=== PATIENT | female | born 1990 | race Caucasian/White ===

== ENCOUNTER 2019-02-06 20:11 | Inpatient (IN) ==
[2019-02-06] MEDS ORDERED: OXYTOCIN 30 UNITS/500 ML BAG IV PRN ×2 (21:00→22:23)
[2019-02-06 21:22] LABS: Hematocrit (blood only) 36.5 % (37-47); Hemoglobin 12.6 g/dL (12.0-16.0); Mean Corpuscular Volume 88.2 fL (80-100); Mean Platelet Volume 10.9 fL (7.4-10.4); Platelet Count 242 K/uL (130-400); RDW Coefficient of Variation 12.6 % (11.5-14.5); Red Blood Count 4.14 M/uL (4.2-5.4); White Blood Count 10.55 K/uL (4.8-10.8)
[2019-02-06 21:39] LABS: Mean Corpuscular Hgb Conc 34.5 g/dL (32-36)
--- NOTE | 2019-02-06 22:23 | History & Physical Report ---
Date of Service February 06, 2019 Assessment & Plan (1) Spontaneous rupture of amniotic membranes: 28 yo at 36.6 wks, with SROM, in early labor GBS negative VSS Afebrile FHR reassuring Discussed expectant management vs augmentation of labor with Pitocin with decreased risk of intraamniotic infection Desires expectant management/ walk now and agrees with augmentation All questions were answered (2) premature rupture of membranes in third trimester: History of Present Illness Chief Complaint: Leaking fluids Primary Care Provider: NO PCP Patient is a 28 yo at 36.6 wks who has been leaking amniotic fluid since 1945 this evening Clear Ctxs started right after, got closer and regular, now every 2-3 min, pain is 5- 6/10 No VB/ Fever/ chills/ n&V +FM Her has been uncomplicated except 1) arrhythmia, PAC, seen MFM and peds cardiology NST's have been reactive GBS negative Allergies Allergy/AdvReac Type Severity Reaction Status Date / Time No Known Allergies Allergy Verified 02/06/19 21:56 Home Medications Home Medications Medication Instructions Recorded Confirmed Type vit-iron fum-folic ac 1 tab PO DAILY 02/06/19 02/06/19 History [ Vitamin] Patient History Medical History History of abnormal cervical Pap smear [place] teeth removed Surgical History H/O colposcopy with cervical biopsy 2013; pap smears since WNL Social History Preferred Language: Croatian Communication Ability: Effective Channel Layer Required: No Beliefs That Will Affect Care: None marital status: Current Living Situation: Spouse Other Information That Helps Us Care for You: No Feels Safe at Home: Yes Safety Concerns: Feels Safe At This Time Smoking Status: Never smoker Do You Dip or Chew Tobacco: No ; Second Hand Exposure: No ; Tobacco Cessation Education Requested by Patient: No Hx Alcohol Use: No Hx Substance Use: No OCCUPATIONAL THERAPY ASST History No h/o STD's, no HSV Review of Systems All systems reviewed & are unremarkable except as noted in HPI & below Physical Exam Constitutional: WD/WN, vitals as above well developed and well nourished NAD, comfortably talking Gastrointestinal (Abdomen): Abd soft, NT, gravid Genitourinary: Grossly leaking, clear, Nitrazine+ Cervix 3/ 80%/ -2,vertex Results & Data Vital Signs (Past 12 Hours) Vital Signs Temp Pulse Resp BP 02/06/19 20:36 76 126/91 02/06/19 20:31 75 127/90 02/06/19 20:26 36.6 C 75 18 127/90 02/06/19 20:22 36.6 C 18 02/06/19 20:21 73 131/93 Laboratory Results Lab Results 02/06/19 Range/Units 21:12 WBC 10.55 (4.8-10.8) K/uL RBC 4.14 L (4.2-5.4) M/uL Hgb 12.6 (12.0-16.0) g/dL Hct 36.5 L (37-47) % MCV 88.2 (80-100) fL MCH 30.4 (25-34) pg MCHC 34.5 (32-36) g/dL RDW Std Deviation 41.0 (36.4-46.3) fL RDW Coeff of Tracy 12.6 (11.5-14.5) % Plt Count 242 (130-400) K/uL MPV 10.9 H (7.4-10.4) fL Monitoring External Monitor categ I Tocodynamometer Ctxs q2-4 min
[2019-02-07] MEDS ORDERED: BUTORPHANOL TARTRATE 1 MG/ML VIAL IV PRN (00:48)
[2019-02-07] MEDS ORDERED: BUTORPHANOL TARTRATE 1 MG/ML VIAL ONE (00:52)
[2019-02-07] MEDS: LACTATED RINGER'S 1,000 ML IV PRN ×2 (01:00→03:20)
[2019-02-07] MEDS ORDERED: fentaNYL 2MCG/ML ROPIV 1.25MG/ML 100 ML BAG EPI ONE (02:23)
[2019-02-07] MEDS ORDERED: BUPIVACAINE 0.25% 30 ML VIAL ONE (02:23)
[2019-02-07] MEDS ORDERED: fentaNYL citrate 100 MCG/2 ML VIAL ONE (02:23)
[2019-02-07] MEDS ORDERED: ePHEDrine sulfate 50 MG/ML AMP ONE (02:23)
--- NOTE | 2019-02-07 02:39 | Anesthesiology Consultation ---
Date of Service February 07, 2019 Assessment & Plan Chart Review Chart Review: Patient NOT seen in Pre Admission Testing and Acceptable Risk for Labor Epidural Consults Requested none ASA ASA2 Proposed Anesthesia Anesthesia Type: Labor Epidural Risk / Benefits Reviewed With: PT / POA / Parent / Guardian, Accepts Plan and Informed Consent Obtained History Height/Weight Height: 5 ft 1 in Weight: 68.492 kg Allergies Allergy/AdvReac Type Severity Reaction Status Date / Time No Known Allergies Allergy Verified 02/06/19 21:56 Medications Home Medications Medication Instructions Recorded Confirmed Last Taken vit-iron fum-folic ac 1 tab PO DAILY 02/06/19 02/06/19 02/06/19 08:00 [ Vitamin] Active Medications Generic Name Dose Route Start Last Admin Trade Name Freq PRN Reason Stop Dose Admin Lactated Ringer's 1,000 mls @ 125 mls/hr 02/06/19 21:00 02/07/19 02:20 Lr IV 02/08/19 20:59 999 mls/hr .Q8H PRN Infusion L&D Protocol Protocol NPO Date Last Intake of Fluids: 02/07/19 Time Last Intake of Fluids: 03:15 Date Last Intake of Solids: 02/06/19 Time Last Intake of Solids: 17:30 Past Medical History Medical History History of abnormal cervical Pap smear [place] teeth removed Exercise / Class Metabolic Activity II 4-5 Yardwork/Stairs/Walk up hill Negative for chest pain or shortness of breath. Past Surgical History Surgical History H/O colposcopy with cervical biopsy 2013; pap smears since WNL Past Anesthesia History No Hx of Anesthesia Complications History of PONV No Hx of PONV and Hx of Motion Sickness Social History Smoking Status: Never smoker Do You Dip or Chew Tobacco: No Hx Alcohol Use: No Hx Substance Use: No substance use type: does not use Review of Systems Patient denies history of abnormal bleeding or bleeding disorder. Patient denies active use of anticoagulants other than low dose aspirin. Patient denies numbness, tingling or weakness in lower extremities. Patient denies active symptoms of GERD. Physical Exam Vital Signs Last Vital Signs Temp 36.7 C 02/07/19 00:06 Pulse 68 02/07/19 03:10 Resp 18 02/07/19 00:06 BP 99/56 L 02/07/19 03:10 Pulse Ox 98 02/07/19 03:09 Constitutional not obese (Gravid uterus) ENMT Mouth: no TMJ abnormality and oral opening not small Thyromental Distance: > or= 3.5 Finger Breadths Mallampati Class: III Neck normal visual inspection; neck extension not limited Respiratory normal respiratory effort Auscultation: lungs clear to auscultation bilaterally Cardiovascular Rate/Rhythm: regular rate and regular rhythm Heart Sounds: no murmur Neurologic moves all extremities Motor/Sensory: no sensory deficit Psychiatric Orientation: alert and oriented x 3 Testing Laboratory Results 02/06/19 21:12
[2019-02-07] MEDS ORDERED: NALOXONE HCL 1 MG in SODIUM CHLORIDE 0.9% 1000ML 1,000 ML IV PRN (03:36)
[2019-02-07] MEDS ORDERED: ePHEDrine sulfate 50 MG/ML AMP IV PRN (03:36)
[2019-02-07] MEDS ORDERED: NALOXONE HCL 0.4 MG/1 ML VIAL/CARP IV PRN (03:36)
[2019-02-07] MEDS ORDERED: DiphenhydrAMINE HCL 50 MG/ML VIAL IV PRN (03:36)
[2019-02-07] MEDS ORDERED: ONDANSETRON INJ 2 MG/ML 2 ML VIAL IV PRN (03:36)
[2019-02-07] MEDS ORDERED: NALBUPHINE HCL INJ 10 MG/ML AMP IV PRN (03:36)
[2019-02-07] MEDS ORDERED: fentaNYL 2MCG/ML ROPIV 1.25MG/ML 100 ML BAG EPI PRN (03:36)
[2019-02-07] MEDS ORDERED: BENZOCAINE 20% AER SPR 82.5 GM CAN EXT PRN (06:50)
[2019-02-07] MEDS ORDERED: ACETAMINOPHEN 325 MG TAB PO PRN (06:50)
[2019-02-07] MEDS ORDERED: SUPERCREAM 0.870% 15 GM JAR EXT PRN (06:50)
[2019-02-07] MEDS ORDERED: HYDROCORTISONE ACETATE 25 MG SUPP PR PRN (06:50)
[2019-02-07] MEDS ORDERED: OXYTOCIN 30 UNITS/500 ML BAG IV PRN (06:50)
[2019-02-07] MEDS ORDERED: DIPHTHERIA/TETANUS/PERTUSSIS 0.5 ML SYR/VIAL IM ONE (06:50)
[2019-02-07] MEDS ORDERED: OXYCODONE/ACETAMINOPHEN 5mg/325mg TAB PO PRN (06:50)
[2019-02-07] MEDS ORDERED: LACTATED RINGER'S 1,000 ML IV SCH (07:00)
--- NOTE | 2019-02-07 07:40 | Anesthesia Procedure Note ---
Date of Service February 07, 2019 Anesthesia Post Epidural Note Vital Signs Vital Signs: Temp Pulse Resp BP Pulse Ox 36.6 C 78 18 104/52 L 97 02/07/19 04:49 02/07/19 07:28 02/07/19 06:58 02/07/19 07:28 02/07/19 06:44 Notes Mental Status: alert / awake / arousable Patient Amnestic to Procedure: Yes Nausea / Vomiting: adequately controlled Pain: adequately controlled Airway Patency, RR, SpO2: stable & adequate BP & HR: stable & adequate Hydration State: stable & adequate Neuraxial Anesthesia: was administered and sensory block is resolving Anesthetic Complications: no major complications apparent and Pt Satisfied with anesthetic care Epidural: Removed without complications and With tip intact
[2019-02-07] MEDS: FERROUS SULFATE 325 MG TAB PO SCH (08:10)
[2019-02-07] MEDS: IBUPROFEN 600 MG TAB PO PRN ×2 (08:10→16:32)
[2019-02-07] MEDS: DOCUSATE SODIUM 100 MG CAP PO SCH ×2 (08:10→20:57)
[2019-02-07] MEDS: PRENATAL VITAMIN 1 TAB PO SCH (08:10)
--- NOTE | 2019-02-07 10:01 | Delivery Summary ---
DATE OF OPERATION: 02/07/2019 DATE OF DELIVERY: 02/07/2019 TIME OF DELIVERY OF BABY: 06:16 a.m. TIME OF DELIVERY OF PLACENTA: 06:38 a.m. DETAILS OF DELIVERY: The patient was found to be fully dilated and desired to push. She pushed through 4 contractions and delivered the head and then shoulders right after without difficulty. Baby was handed to the mother where mouth and nose were suctioned. Cord was clamped x2 at 1 minute delay and then cut. Then vagina and perineum were checked for lacerations. There was a second-degree perineal laceration, which was confirmed with a rectal exam. Excellent sphincter tone was noted. Gloves were changed. The perineal body muscles around the sphincter were held with Allis clamps. They were brought to the midline and they were repaired with [id number] stitches x2 to reinforce the external sphincter muscles. Rectal exam was repeated. Still excellent sphincter tone was noted. No sutures were felt. Then gloves were changed. Vagina mucosa and bulbocavernous muscles were reapproximated with 2-0 Vicryl in a running fashion, skin in a subcuticular fashion and the rest of the perineum and vagina were intact and it was hemostatic. Placenta was found to be in the vagina, delivered spontaneously, was intact and complete. Uterus was explored, found to be empty. Fundus was firm. Lower segment was cleared of all clots and debris. EBL was 150 mL and mom and baby tolerated the procedure well. Sponge, lap, needle, instrument count was correct x2. Baby was a viable male , Apgars 8/9, weight is 2660 gr. No complications happened and I was present during whole procedure. I attest to the content of the Intraoperative Record and any orders documented therein. Any exceptions are noted below. MTDD
[2019-02-07] MEDS: MAGNESIUM HYDROXIDE SUSP 30 ML UDC PO SCH (20:58)
[2019-02-07] MEDS ORDERED: BISACODYL 5 MG TABEC PO SCH (21:00)
[2019-02-08] MEDS: IBUPROFEN 600 MG TAB PO PRN ×3 (03:19→22:32)
[2019-02-08 06:51] LABS: Hematocrit (blood only) 31.4 % (37-47); Hemoglobin 10.5 g/dL (12.0-16.0); Mean Corpuscular Hgb Conc 33.4 g/dL (32-36); Platelet Count 197 K/uL (130-400); RDW Coefficient of Variation 13.3 % (11.5-14.5); Red Blood Count 3.49 M/uL (4.2-5.4)
--- NOTE | 2019-02-08 07:44 | Obstetrical Progress Note ---
Date of Service February 08, 2019 Subjective Patient is seen and examined. She feels well, no complaints. Ambulating without dizziness Voiding without difficulty Tolerating regular diet with out N&V Bleeding is minimal No fever/ chills/ CP/ SOB/ N&V/ Leg pain Breast feeding without problems Vital Signs Temp Pulse Pulse Resp BP BP Pulse Ox 02/08/19 03:15 36.6 C 55 L 16 116/77 02/07/19 23:30 36.4 C L 70 18 115/72 02/07/19 19:50 36.7 C 61 16 114/73 98 02/07/19 16:15 37 C 56 L 18 121/77 98 02/07/19 12:20 36.7 C 56 L 18 115/77 02/07/19 09:00 36.8 C 56 L 18 111/67 02/07/19 08:41 72 103/64 02/07/19 08:28 68 101/66 02/07/19 08:13 56 L 105/66 02/07/19 07:58 67 104/70 Lab Results 02/06/19 02/08/19 Range/Units 21:12 06:18 WBC 10.55 11.50 H (4.8-10.8) K/uL RBC 4.14 L 3.49 L (4.2-5.4) M/uL Hgb 12.6 10.5 L (12.0-16.0) g/dL Hct 36.5 L 31.4 L (37-47) % MCV 88.2 90.0 (80-100) fL MCH 30.4 30.1 (25-34) pg MCHC 34.5 33.4 (32-36) g/dL RDW Std Deviation 41.0 43.0 (36.4-46.3) fL RDW Coeff of Tracy 12.6 13.3 (11.5-14.5) % Plt Count 242 197 (130-400) K/uL MPV 10.9 H 11.0 H (7.4-10.4) fL PE: General: Alert, orientedx3, NAD Abd: soft, NT, fundus firm, below Umbilicus Perineum intact, Lochia rubra minimal Ext; NT, no edema AP: 28 yo s/p , ppd# 1 VSS Afebrile doing well Continue routine care All questions were answered D/C home tomorrow Results & Data Vital Signs (Past 12 Hours) Vital Signs Temp Pulse Resp BP Pulse Ox 02/08/19 03:15 36.6 C 55 L 16 116/77 02/07/19 23:30 36.4 C L 70 18 115/72 02/07/19 19:50 36.7 C 61 16 114/73 98
[2019-02-08] MEDS: DOCUSATE SODIUM 100 MG CAP PO SCH ×2 (08:09→20:54)
[2019-02-08] MEDS: PRENATAL VITAMIN 1 TAB PO SCH (08:09)
[2019-02-08] MEDS: FERROUS SULFATE 325 MG TAB PO SCH (08:09)
[2019-02-08] MEDS: MAGNESIUM HYDROXIDE SUSP 30 ML UDC PO SCH ×2 (08:13→20:57)
[2019-02-09 08:09] LABS: Hematocrit (blood only) 33.4 % (37-47); Hemoglobin 11.2 g/dL (12.0-16.0)
[2019-02-09] MEDS: DOCUSATE SODIUM 100 MG CAP PO SCH (08:12)
[2019-02-09] MEDS: FERROUS SULFATE 325 MG TAB PO SCH (08:12)
[2019-02-09] MEDS: PRENATAL VITAMIN 1 TAB PO SCH (08:12)
[2019-02-09] MEDS: IBUPROFEN 600 MG TAB PO PRN ×2 (08:15→15:22)
[2019-02-09] MEDS: MAGNESIUM HYDROXIDE SUSP 30 ML UDC PO SCH ×2 (08:26→09:51)
--- NOTE | 2019-02-09 09:20 | Surgery Progress Note ---
Date of Service February 09, 2019 Subjective doing well OOB tolerating diet well Physical Exam Constitutional: WD/WN, vitals as above comfortable abdomen soft non- tender fundus firm for discharge home Results & Data Vital Signs (Past 12 Hours) Vital Signs Temp Pulse Resp BP Pulse Ox 02/09/19 07:50 36.7 C 66 20 114/70 97 02/08/19 23:45 36.6 C 58 L 16 118/72 99 Laboratory Results Laboratory Results - last 48 hr 02/08/19 02/09/19 06:18 07:36 WBC 11.50 H RBC 3.49 L Hgb 10.5 L 11.2 L Hct 31.4 L 33.4 L MCV 90.0 MCH 30.1 MCHC 33.4 RDW Std Deviation 43.0 RDW Coeff of Tracy 13.3 Plt Count 197 MPV 11.0 H
== END 2019-02-09 18:39 | disposition home or self-care (01) | DRG 768 ==
LOC: OPB 20:11 → 4S1 20:14 → 4S2 02-07 09:43
DX: O70.20 Third degree perineal laceration during delivery, unspecified; O42.013 Preterm premature rupture of membranes, onset of labor within 24 hours of rupture, third trimester; Z3A.36 36 weeks gestation of pregnancy; O70.1 Second degree perineal laceration during delivery; Z37.0 Single live birth

== ENCOUNTER 2021-01-23 23:13 | Inpatient (IN) ==
[2021-01-23] MEDS ORDERED: PENICILLIN G POTASSIUM 3 MU in DEXTROSE 5% 100 ML IV PRN (23:22)
[2021-01-23] MEDS ORDERED: PENICILLIN G POTASSIUM 6 MU in DEXTROSE 5% 250 ML IV STA (23:22)
[2021-01-23] MEDS ORDERED: OXYTOCIN 30 UNITS/500 ML BAG IV PRN (23:22)
[2021-01-23] MEDS: LACTATED RINGER'S 1,000 ML IV PRN (23:38)
[2021-01-23] MEDS ORDERED: ePHEDrine sulfate 50 MG/ML AMP ONE (23:44)
[2021-01-23] MEDS ORDERED: SODIUM CHLORIDE 0.9% INJ 10 ML VIAL ONE (23:44)
[2021-01-23] MEDS ORDERED: fentaNYL 2MCG/ML ROPIVACAINE 1.25MG/ML 100 ML BAG EPI ONE (23:45)
[2021-01-23] MEDS ORDERED: BUPIVACAINE 0.25% 30 ML VIAL ONE (23:45)
[2021-01-23] MEDS ORDERED: fentaNYL citrate 100 MCG/2 ML VIAL ONE (23:45)
[2021-01-23 23:50] LABS: Hematocrit (blood only) 36.5 % (37-47); Hemoglobin 12.5 g/dL (12.0-16.0); Mean Corpuscular Hemoglobin 30.2 pg (25-34); Mean Corpuscular Hgb Conc 34.2 g/dL (32-36); Mean Corpuscular Volume 88.2 fL (80-100); Mean Platelet Volume 10.4 fL (7.4-10.4); Platelet Count 222 K/uL (130-400); RDW Coefficient of Variation 12.7 % (11.5-14.5); RDW Standard Deviation 40.9 fL (36.4-46.3); Red Blood Count 4.14 M/uL (4.2-5.4); White Blood Count 10.99 K/uL (4.8-10.8)
--- NOTE | 2021-01-23 23:55 | History & Physical Report ---
Date of Service January 23, 2021 Assessment & Plan (1) premature rupture of membranes in third trimester: (2) Spontaneous rupture of amniotic membranes: Plan: Admit in labor start Antibiotics Plan for epidural anticipate normal delivery Admission and Anticipated Discharge Date Admission Date: January 23, 2021 History of Present Illness Chief Complaint: SROM clear fluid Primary Care Provider: ADRIANE PCP 30 F P1001 at 37 weeks with SROM clear fluid at 10 PM tonight with onset of contractions. GBS is positive. Covid is negative. has been uncomplicated. Allergies Allergy/AdvReac Type Severity Reaction Status Date / Time No Known Allergies Allergy Verified 01/23/21 23:42 Home Medications Medication Instructions Recorded Confirmed Type vitamins-iron fumarate 27 1 tab PO DAILY 02/06/19 01/23/21 History mg iron-folic acid 0.8 mg tablet ( Vitamin) Patient History Medical History History of abnormal cervical Pap smear Surgical History H/O colposcopy with cervical biopsy 2013; pap smears since WNL [place] teeth removed Social History Smoking Status: Never smoker Second Hand Exposure: No; Hx Alcohol Use: No Hx Substance Use: No Preferred Language: Guatemalan Communication Ability: Effective 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 Beliefs That Will Affect Care: None marital status: Current Living Situation: Spouse Feels Safe at Home: Yes Assistive Devices: None 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 Review of Systems All systems reviewed & are unremarkable except as noted in HPI & below Physical Exam Constitutional: WD/WN, vitals as above comfortable Eyes: PERRL, conjunctivae normal, anicteric sclerae Respiratory: normal respiratory effort, lungs clear to auscultation Cardiovascular: Rate/Rhythm: regular rate and regular rhythm Gastrointestinal (Abdomen): normal bowel sounds, soft, nontender, no hepatosplenomegaly Skin: no rashes, warm and dry Neurologic: patellar DTR's 2+ bilat, sensation intact Psychiatric: A+Ox3, euthymic affect Genitourinary: Manual OB Exam: + cervical dilation 4 cm, + cervical effacement 70%, + station -1 and + amniotic fluid clear OB Exam Monitor Tracing: + external FHT monitor used, + external uterine monitor used and + category I Results & Data ([facility]) Vital Signs (Past 12 Hours) Vital Signs Pulse BP 01/23/21 23:20 70 133/90 Laboratory Results Laboratory Results - last 48 hr 01/23/21 01/23/21 23:36 23:45 WBC 10.99 H RBC 4.14 L Hgb 12.5 Hct 36.5 L MCV 88.2 MCH 30.2 MCHC 34.2 RDW Std Deviation 40.9 RDW Coeff of Tracy 12.7 Plt Count 222 MPV 10.4 COVID-19 [facility] Code Status & VTE Plan VTE Prophylaxis Plan VTE Prophylaxis will be ordered: No
[2021-01-24] MEDS ORDERED: fentaNYL 2MCG/ML ROPIVACAINE 1.25MG/ML 100 ML BAG EPI PRN (00:26)
[2021-01-24] MEDS ORDERED: diphenhydrAMINE 50 MG/ML VIAL IV PRN (00:26)
[2021-01-24] MEDS ORDERED: ePHEDrine sulfate 50 MG/ML AMP IV PRN (00:26)
[2021-01-24] MEDS ORDERED: ONDANSETRON INJ 2 MG/ML 2 ML VIAL IV PRN (00:26)
[2021-01-24] MEDS ORDERED: NALBUPHINE HCL INJ 10 MG/ML AMP IV PRN (00:26)
[2021-01-24] MEDS ORDERED: NALOXONE HCL 0.4 MG/1 ML VIAL/CARP IV PRN (00:26)
[2021-01-24] MEDS ORDERED: NALOXONE HCL 1 MG in SODIUM CHLORIDE 0.9% 1000ML 1,000 ML IV PRN (00:26)
--- NOTE | 2021-01-24 00:28 | Anesthesiology Consultation ---
Date of Service January 24, 2021 Assessment & Plan Chart Review Chart Review: Patient NOT seen in Pre Admission Testing and Acceptable Risk for Labor Epidural Consults Requested none ASA ASA2 Proposed Anesthesia Anesthesia Type: Labor Epidural and CSE Risk / Benefits Reviewed With: PT / POA / Parent / Guardian, Accepts Plan and Informed Consent Obtained History Height/Weight Height: 5 ft 1 in Weight: 72.575 kg Allergies Allergy/AdvReac Type Severity Reaction Status Date / Time No Known Allergies Allergy Verified 01/23/21 23:42 Medications Home Medications Medication Instructions Recorded Confirmed Last Taken vitamins-iron fumarate 27 1 tab PO DAILY 02/06/19 01/23/21 01/22/21 mg iron-folic acid 0.8 mg tablet ( Vitamin) Active Medications Generic Name Dose Route Start Last Admin Trade Name Freq PRN Reason Stop Dose Admin Lactated Ringer's 1,000 mls @ 125 mls/hr 01/23/21 23:22 01/23/21 23:38 Lr IV 01/25/21 23:21 999 mls/hr .Q8H PRN Administration L&D Protocol Protocol NPO Date Last Intake of Fluids: 01/23/21 Time Last Intake of Fluids: 23:00 Date Last Intake of Solids: 01/23/21 Time Last Intake of Solids: 19:00 Past Medical History Medical History History of abnormal cervical Pap smear Exercise / Class Metabolic Activity II 4-5 Yardwork/Stairs/Walk up hill Past Surgical History Surgical History H/O colposcopy with cervical biopsy 2013; pap smears since WNL [place] teeth removed Past Anesthesia History No Hx of Anesthesia Complications and No Family Hx of Anesthesia Complications Social History Smoking Status: Never smoker Hx Alcohol Use: No Hx Substance Use: No substance use type: does not use Review of Systems no chest pain or sob Physical Exam Vital Signs Last Vital Signs Temp 36.7 C 01/23/21 23:47 Pulse 63 01/24/21 00:21 Resp 18 01/23/21 23:47 BP 128/80 01/24/21 00:16 Pulse Ox 100 01/24/21 00:21 ENMT Mouth: no TMJ abnormality Thyromental Distance: > or= 3.5 Finger Breadths Mallampati Class: II Neck normal visual inspection Respiratory normal respiratory effort Auscultation: lungs clear to auscultation bilaterally Cardiovascular Rate/Rhythm: regular rate and regular rhythm Musculoskeletal Spine: normal cervical ROM Neurologic moves all extremities Psychiatric Orientation: alert and oriented x 3 Testing Laboratory Results 01/23/21 23:36
[2021-01-24] MEDS: LACTATED RINGER'S 1,000 ML IV PRN (00:56)
--- NOTE | 2021-01-24 03:59 | Delivery Summary ---
Vaginal Delivery Summary Date of Service January 24, 2021 Vaginal Delivery Summary Delivery Note live male CORTNEY over intact perineum with delayed cord clamping and Apgars 8/9 weight pending. Cord blood obtained followed by spontaneous delivery of intact placenta. First degree tear repaired with 3/0 Vicryl suture. EBL 100 ml. Final sponge needle and instrument count are correct. Mom and baby stable.
[2021-01-24] MEDS ORDERED: ACETAMINOPHEN 325 MG TAB PO PRN (04:03)
[2021-01-24] MEDS ORDERED: OXYTOCIN 30 UNITS/500 ML BAG IV PRN (04:03)
[2021-01-24] MEDS ORDERED: BENZOCAINE 20% AER SPR 82.5 GM CAN EXT PRN (04:03)
[2021-01-24] MEDS ORDERED: HYDROCORTISONE ACETATE 25 MG SUPP PR PRN (04:03)
[2021-01-24] MEDS ORDERED: bisacodyL 10 MG SUPP PR PRN (04:03)
[2021-01-24] MEDS ORDERED: DIPHTHERIA/TETANUS/PERTUSSIS 0.5 ML SYR/VIAL IM ONE (04:03)
[2021-01-24] MEDS ORDERED: SUPERCREAM 0.870% 15 GM JAR EXT PRN (04:03)
[2021-01-24] MEDS: FERROUS SULFATE 325 MG TAB PO SCH (07:33)
[2021-01-24] MEDS: PRENATAL VITAMIN 1 TAB PO SCH (07:33)
[2021-01-24] MEDS: DOCUSATE SODIUM 100 MG CAP PO SCH ×2 (07:33→20:09)
[2021-01-24] MEDS: IBUPROFEN 600 MG TAB PO PRN ×2 (07:33→16:09)
--- NOTE | 2021-01-24 07:52 | Anesthesiology Progress Note ---
Date of Service January 24, 2021 Anesthesia Post Procedure Vital Signs Vital Signs: Temp Pulse Pulse Resp BP BP Pulse Ox 01/24/21 07:15 36.6 C 56 L 16 114/73 97 01/24/21 05:45 36.8 C 77 18 107/61 01/24/21 05:31 79 109/61 01/24/21 05:16 84 114/73 01/24/21 05:15 18 01/24/21 05:01 65 113/69 01/24/21 04:46 76 112/66 01/24/21 04:45 18 01/24/21 04:33 71 113/57 L 01/24/21 04:30 20 01/24/21 04:17 80 132/57 L 01/24/21 04:15 18 01/24/21 04:01 99 H 18 111/74 01/24/21 03:47 90 18 112/59 L 01/24/21 03:41 76 97 01/24/21 03:36 89 97 01/24/21 03:33 88 90 01/24/21 03:31 84 99 01/24/21 03:29 86 109/62 01/24/21 03:26 79 98 01/24/21 03:21 86 98 01/24/21 03:16 79 98 01/24/21 03:13 64 111/62 01/24/21 03:11 63 103/57 L 97 01/24/21 03:06 88 98 01/24/21 03:05 36.8 C 16 01/24/21 03:01 83 98 01/24/21 02:58 81 108/61 01/24/21 02:56 84 97 01/24/21 02:51 79 98 01/24/21 02:46 84 97 01/24/21 02:44 81 115/62 01/24/21 02:41 82 97 01/24/21 02:36 86 98 01/24/21 02:31 74 97 01/24/21 02:29 72 110/66 01/24/21 02:26 86 98 01/24/21 02:21 81 98 01/24/21 02:16 85 97 01/24/21 02:13 78 106/62 01/24/21 02:11 83 97 01/24/21 02:06 68 98 01/24/21 02:04 18 01/24/21 02:01 76 99 01/24/21 01:58 69 131/82 01/24/21 01:56 85 98 01/24/21 01:51 70 99 01/24/21 01:46 75 99 01/24/21 01:44 78 137/85 01/24/21 01:41 70 99 01/24/21 01:36 70 100 01/24/21 01:31 63 16 100 01/24/21 01:28 59 L 119/78 01/24/21 01:26 66 100 01/24/21 01:21 65 97 01/24/21 01:16 50 L 99 01/24/21 01:15 16 01/24/21 01:11 59 L 102/56 L 100 01/24/21 01:07 57 L 98/55 L 01/24/21 01:06 60 99 01/24/21 01:03 101/57 L 01/24/21 01:01 63 100 01/24/21 01:00 36.8 C 18 01/24/21 00:56 57 L 99 01/24/21 00:55 60 104/54 L 01/24/21 00:53 66 95/53 L 01/24/21 00:51 71 95/61 L 100 01/24/21 00:50 58 L 18 87/52 L 01/24/21 00:49 67 93 01/24/21 00:46 66 100 01/24/21 00:45 60 16 112/54 L 01/24/21 00:44 56 L 103/58 L 01/24/21 00:43 65 90 01/24/21 00:41 61 138/79 100 01/24/21 00:40 18 01/24/21 00:36 62 100 01/24/21 00:31 62 100 01/24/21 00:26 64 100 01/24/21 00:21 63 100 01/24/21 00:16 60 128/80 100 01/24/21 00:11 65 100 01/23/21 23:47 36.7 C 18 01/23/21 23:20 70 133/90 Pain Intensity Lower Abdomen: Pain Intensity: 0 Perineal: Pain Intensity: 2 Transfer of Care Handoff Completed per policy Notes Mental Status: alert / awake / arousable and participated in evaluation Patient Amnestic to Procedure: Yes Nausea / Vomiting: adequately controlled Pain: adequately controlled Airway Patency, RR, SpO2: stable & adequate BP & HR: stable & adequate Hydration State: stable & adequate Neuraxial Anesthesia: sensory block is resolving Anesthetic Complications: no major complications apparent and Pt Satisfied with anesthetic care
[2021-01-24] MEDS ORDERED: NON-FORMULARY MEDICATION (Prenatal Vit-Iron Fum-Folic Ac [Prenatal Vitamin] 27 mg iron- 0. PO SCH (09:00)
[2021-01-25 06:42] LABS: Hematocrit (blood only) 35.2 % (37-47); Hemoglobin 11.7 g/dL (12.0-16.0); Mean Corpuscular Hemoglobin 29.8 pg (25-34); Mean Corpuscular Hgb Conc 33.2 g/dL (32-36); Mean Corpuscular Volume 89.6 fL (80-100); Mean Platelet Volume 10.1 fL (7.4-10.4); Platelet Count 205 K/uL (130-400); RDW Coefficient of Variation 13.1 % (11.5-14.5); RDW Standard Deviation 42.9 fL (36.4-46.3); Red Blood Count 3.93 M/uL (4.2-5.4)
--- NOTE | 2021-01-25 08:12 | Obstetrical Progress Note ---
Date of Service January 25, 2021 Subjective Ambulation: ambulating normally Voiding: no voiding problems Passing Gas:: Yes Diet Tolerance:: regular diet Lochia:: Small Feeding Type:: breast feeding Current Pain Level(1-10): 0 doing well plans for d/c today Physical Exam Constitutional WD/WN, vitals as above comfortable abdomen soft and non-tender fundus firm no edema neg Kash's for d/c home Results & Data [facility] Vital Signs (Past 12 Hours) Vital Signs Temp Pulse Resp BP 01/24/21 23:05 37.0 C 58 L 18 120/80
[2021-01-25] MEDS: PRENATAL VITAMIN 1 TAB PO SCH (08:13)
[2021-01-25] MEDS: DOCUSATE SODIUM 100 MG CAP PO SCH (08:13)
[2021-01-25] MEDS: IBUPROFEN 600 MG TAB PO PRN (08:13)
[2021-01-25] MEDS: FERROUS SULFATE 325 MG TAB PO SCH (08:13)
[2021-01-25] MEDS ORDERED: bisacodyL 5 MG TABEC PO SCH (20:00)
== END 2021-01-25 13:03 | disposition home or self-care (01) | DRG 807 ==
LOC: OPB 23:13 → 4S1 23:15 → 4S2 01-24 05:50

== ENCOUNTER 2022-11-25 05:27 | Inpatient (IN) ==
--- NOTE | 2022-11-20 09:18 | Anesthesiology Consultation ---
Date of Service November 20, 2022 Assessment & Plan (1) Encounter for pre-operative examination: Chart Review Chart Review: entry engineer initiated -COVID screening: Per PAT nursing assessment on 11/20/22. No known COVID-19 positive contacts or current COVID-19 related symptoms. Travel screen negative. Patient vaccinated for Covid. At surgeon discretion if preop Covid testing being done. CSE 01/24/21= Done at L3-4 with 1 attempt History Surgery Operation Date: 11/25/22 07:30 Proposed Procedures p Section - Duane Gutiérrez MD Height/Weight Height: 5 ft 1 in Weight: 73.482 kg Allergies Allergy/AdvReac Type Severity Reaction Status Date / Time No Known Allergies Allergy Verified 11/20/22 09:00 Medications Home Medications Medication Instructions Recorded Confirmed Last Taken vitamins-iron fumarate 27 1 tab PO DAILY 02/06/19 11/20/22 01/22/21 mg iron-folic acid 0.8 mg tablet ( Vitamin) Past Medical History Medical History History of abnormal cervical Pap smear History of COVID-19 2020>resolved Past Family History Family History Other No family history of adverse response to anesthesia Past Surgical History Surgical History H/O colposcopy with cervical biopsy 2013; pap smears since WNL [place] teeth removed Social History Smoking Status: Never smoker Do You Dip or Chew Tobacco: No Hx Alcohol Use: No Hx Substance Use: No substance use type: does not use
[2022-11-25] MEDS ORDERED: CITRIC ACID/SODIUM CITRATE 15 ML UDC PO SCH (06:00)
[2022-11-25] MEDS ORDERED: LACTATED RINGER'S 1,000 ML IV SCH ×2 (06:00→12:15)
[2022-11-25] MEDS ORDERED: ceFAZolin 2,000 MG in SYRINGE 0 ML IV SCH (06:00)
[2022-11-25 06:34] LABS: Basophils # (auto) 0.03 K/uL (0-0.2); Basophils % (auto) 0.4 %; Eosinophils # (auto) 0.11 K/uL (0-0.50); Eosinophils % (auto) 1.4 %; Hematocrit (blood only) 35.5 % (37.0-47.0); Hemoglobin 11.9 g/dl (12.0-16.0); Immature Granulocytes # (auto) 0.04 K/uL (0.01-0.20); Immature Granulocytes % (auto) 0.5 %; Lymphocytes # (auto) 2.59 K/uL (1.2-3.4); Lymphocytes % (auto) 32.9 %; Mean Corpuscular Hgb Conc 33.5 g/dL (32.0-36.0); Mean Corpuscular Volume 86.6 fL (80.0-100.0); Mean Platelet Volume 10.8 fL (9.4-12.4); Monocytes # (auto) 0.72 K/uL (0.11-0.59); Monocytes % (auto) 9.1 %; Neutrophils # (auto) 4.39 K/uL (1.40-6.50); Neutrophils % (auto) 55.7 %; Platelet Count 216 K/uL (130-400); RDW Coefficient of Variation 13.7 % (11.5-14.5); RDW Standard Deviation 42.8 fL (36.4-46.3); White Blood Count 7.88 K/ul (4.8-10.8)
[2022-11-25] MEDS ORDERED: MoRPHine SULFATE PF 1 MG/ML 10 ML AMP/VIAL ONE (07:18)
--- NOTE | 2022-11-25 07:38 | History & Physical Bridge Note ---
Date of Service November 25, 2022 History & Physical Bridge Note I have examined the patient, reviewed the History & Physical and in the interval since the performance of the History & Physical I have noted the following changes of clinical significance: no changes noted, The patient was scanned by me at bedside and was still found to be breech.
[2022-11-25] MEDS ORDERED: METOCLOPRAMIDE HCL INJ 5 MG/ML 2 ML VIAL ONE (08:20)
[2022-11-25] MEDS ORDERED: SODIUM CHLORIDE 0.9% PF INJ 10 ML VIAL ONE (08:20)
[2022-11-25] MEDS ORDERED: OXYTOCIN 10 UNITS/ML VIAL ONE ×3 (08:20→08:35)
[2022-11-25] MEDS ORDERED: LIDOCAINE 2% MPF LOCAL 5 ML VIAL ONE (08:20)
[2022-11-25] MEDS ORDERED: ePHEDrine sulfate 50 MG/ML SYR ONE (08:20)
[2022-11-25] MEDS ORDERED: ePHEDrine sulfate 50 MG/ML AMP ONE (08:20)
[2022-11-25] MEDS ORDERED: ONDANSETRON INJ 2 MG/ML 2 ML VIAL ONE (08:20)
[2022-11-25] MEDS ORDERED: PROPOFOL IV EMULSION 10 MG/ML 20 ML VIAL IV ONE (08:20)
[2022-11-25] MEDS ORDERED: PHENYLEPHRINE 100MCG/ML 5ML SYR ONE (08:20)
[2022-11-25] MEDS ORDERED: NALOXONE HCL 1 MG in SODIUM CHLORIDE 0.9% 1000ML 1,000 ML IV PRN (08:25)
[2022-11-25] MEDS ORDERED: diphenhydrAMINE 50 MG/ML VIAL IV PRN ×2 (08:25→12:15)
[2022-11-25] MEDS ORDERED: MoRPHine SULFATE 2 MG/ML CARP IV PRN (08:25)
[2022-11-25] MEDS ORDERED: ONDANSETRON INJ 2 MG/ML 2 ML VIAL IV PRN ×2 (08:25→12:15)
[2022-11-25] MEDS ORDERED: ePHEDrine sulfate 50 MG/ML AMP IV PRN (08:25)
[2022-11-25] MEDS ORDERED: LACTATED RINGER'S 500 ML IV PRN (08:25)
[2022-11-25] MEDS ORDERED: NALOXONE HCL 0.08 MG in SYRINGE 1.8 ML IV PRN (08:25)
[2022-11-25] MEDS ORDERED: MoRPHine SULFATE PF 1 MG/ML 10 ML AMP/VIAL INT SPINAL ONE (08:25)
[2022-11-25] MEDS ORDERED: KETOROLAC 30 MG/ML VIAL IV PRN ×2 (08:25→12:15)
[2022-11-25] MEDS ORDERED: PROMETHAZINE HCL 12.5 MG in SODIUM CHLORIDE 0.9% 50 ML IV PRN (08:25)
[2022-11-25] MEDS ORDERED: NALOXONE HCL 0.4 MG/1 ML VIAL/CARP IV PRN (08:25)
[2022-11-25] MEDS ORDERED: NALBUPHINE HCL INJ 10 MG/ML AMP IV PRN (08:25)
[2022-11-25] MEDS ORDERED: DC INTRASPINAL MORPHINE SCH (08:30)
[2022-11-25] MEDS ORDERED: SODIUM CHLORIDE 0.9% 1000ML 1,000 ML IV SCH (08:30)
[2022-11-25] MEDS ORDERED: NO NARCOTICS OR SEDATIVES SCH (08:30)
--- NOTE | 2022-11-25 09:22 | Post Operative Brief Note ---
Immediate Post Op Note v1 Date of Surgery November 25, 2022 Pre & Post Diagnosis Operation Date: 11/25/22 07:30 Pre-Op Diagnosis: Term;Breech Post-Op Diagnosis: Same; Delivery of a live female child at 0818 I identified the patient and participated in the time-out.: Yes Procedure Operation Date: 11/25/22 07:30 Actual Procedures p Section - Duane Gutiérrez MD Surgeon Duane Gutiérrez MD Veterinary Radiologist Dr. Soliz Estimated Blood Loss 500 Findings Consistent with Post-Op Diagnosis Live female maranda breech Apgars 8/9 weight 8#7.8 oz. Fluids 3000 ml LR Specimens placenta Drains Coleman Catheter Anesthesia Type Spinal Complications none Overlapping Procedure I was present for: the critical portions of procedure. I was immediately available: during the entire case. Back up surgeon: used during listed procedure.
[2022-11-25] MEDS ORDERED: diphenhydrAMINE Capsule 25 MG CAP PO PRN (12:15)
[2022-11-25] MEDS ORDERED: BENZOCAINE 20% AER SPR 82.5 GM CAN EXT PRN (12:15)
[2022-11-25] MEDS ORDERED: MEPERIDINE HCL 50 MG/ML CARP IV PRN (12:15)
[2022-11-25] MEDS ORDERED: MAGNESIUM HYDROXIDE SUSP 30 ML UDC PO PRN (12:15)
[2022-11-25] MEDS ORDERED: SENNA 8.6 MG TAB PO PRN (12:15)
[2022-11-25] MEDS ORDERED: oxyCODONE/ACETAMINOPHEN 5mg/325mg TAB PO PRN (12:15)
[2022-11-25] MEDS ORDERED: HYDROCORTISONE ACETATE 25 MG SUPP PR PRN (12:15)
[2022-11-25] MEDS ORDERED: PROMETHAZINE HCL 25 MG in SODIUM CHLORIDE 0.9% 50 ML IV PRN (12:15)
[2022-11-25] MEDS ORDERED: DIPHTHERIA/TETANUS/PERTUSSIS Vaccine (Tdap, Age 7+yrs) 0.5mL SYR/VL IM ONE (12:15)
[2022-11-25] MEDS: SIMETHICONE 80 MG CHEW PO SCH ×3 (13:56→20:32)
[2022-11-25] MEDS: OXYTOCIN 20 UNITS in LACTATED RINGER'S 1,000 ML IV SCH ×2 (14:31→23:08)
--- NOTE | 2022-11-25 16:56 | Anesthesiology Progress Note ---
Date of Service November 25, 2022 Anesthesia Post Procedure Vital Signs Vital Signs: Temp Pulse Pulse Resp BP BP Pulse Ox 11/25/22 14:00 16 98 11/25/22 13:00 16 99 11/25/22 12:00 18 97 11/25/22 12:00 36.4 C L 50 L 18 113/64 97 11/25/22 11:13 36.5 C 20 11/25/22 10:43 104/56 L 11/25/22 10:43 20 95 11/25/22 10:13 20 11/25/22 10:03 16 11/25/22 09:53 20 11/25/22 09:43 18 11/25/22 09:33 18 11/25/22 09:23 18 11/25/22 09:13 36.5 C 20 11/25/22 11:28 60 98 11/25/22 11:23 60 97 11/25/22 11:22 55 L 104/57 L 11/25/22 11:18 54 L 97 11/25/22 11:13 56 L 98 11/25/22 11:12 55 L 104/56 L 11/25/22 11:08 58 L 97 11/25/22 11:03 98 11/25/22 11:03 53 L 11/25/22 11:03 58 L 106/53 L 11/25/22 10:58 60 97 11/25/22 10:53 62 119/51 L 99 11/25/22 10:48 68 96 11/25/22 10:43 94 11/25/22 10:43 76 11/25/22 10:43 60 100/63 11/25/22 10:38 58 L 98 11/25/22 10:33 94 11/25/22 10:33 80 11/25/22 10:33 75 125/59 L 11/25/22 10:30 71 91 11/25/22 10:28 66 97 11/25/22 10:23 98 11/25/22 10:23 59 L 11/25/22 10:23 59 L 107/55 L 11/25/22 10:20 73 92 11/25/22 10:18 60 97 11/25/22 10:13 97 11/25/22 10:13 60 11/25/22 10:13 64 116/57 L 11/25/22 10:08 65 98 11/25/22 10:09 65 123/78 11/25/22 10:03 97 11/25/22 10:03 65 11/25/22 10:03 65 113/57 L 11/25/22 09:58 72 97 11/25/22 09:54 57 L 109/56 L 11/25/22 09:53 62 98 11/25/22 09:48 62 96 11/25/22 09:43 98 11/25/22 09:43 66 11/25/22 09:43 65 106/68 11/25/22 09:38 60 98 11/25/22 09:33 98 11/25/22 09:33 63 11/25/22 09:33 62 108/56 L 11/25/22 09:28 61 98 11/25/22 09:23 63 98 11/25/22 09:22 58 L 104/56 L 11/25/22 09:18 66 98 11/25/22 09:13 99 11/25/22 09:13 70 11/25/22 09:13 62 113/56 L 11/25/22 07:30 22 11/25/22 07:30 36.8 C 22 11/25/22 07:04 68 117/78 11/25/22 06:27 18 11/25/22 06:27 36.7 C 18 11/25/22 06:29 68 107/75 O2 Del Method 11/25/22 14:00 11/25/22 13:00 11/25/22 12:00 11/25/22 12:00 Room Air 11/25/22 11:13 11/25/22 10:43 11/25/22 10:43 11/25/22 10:13 11/25/22 10:03 11/25/22 09:53 11/25/22 09:43 11/25/22 09:33 11/25/22 09:23 11/25/22 09:13 11/25/22 11:28 11/25/22 11:23 11/25/22 11:22 11/25/22 11:18 11/25/22 11:13 11/25/22 11:12 11/25/22 11:08 11/25/22 11:03 11/25/22 11:03 11/25/22 11:03 11/25/22 10:58 11/25/22 10:53 11/25/22 10:48 11/25/22 10:43 11/25/22 10:43 11/25/22 10:43 11/25/22 10:38 11/25/22 10:33 11/25/22 10:33 11/25/22 10:33 11/25/22 10:30 11/25/22 10:28 11/25/22 10:23 11/25/22 10:23 11/25/22 10:23 11/25/22 10:20 11/25/22 10:18 11/25/22 10:13 11/25/22 10:13 11/25/22 10:13 11/25/22 10:08 11/25/22 10:09 11/25/22 10:03 11/25/22 10:03 11/25/22 10:03 11/25/22 09:58 11/25/22 09:54 11/25/22 09:53 11/25/22 09:48 11/25/22 09:43 11/25/22 09:43 11/25/22 09:43 11/25/22 09:38 11/25/22 09:33 11/25/22 09:33 11/25/22 09:33 11/25/22 09:28 11/25/22 09:23 11/25/22 09:22 11/25/22 09:18 11/25/22 09:13 11/25/22 09:13 11/25/22 09:13 11/25/22 07:30 11/25/22 07:30 11/25/22 07:04 11/25/22 06:27 11/25/22 06:27 11/25/22 06:29 Pain Intensity Lower Abdomen: Pain Intensity: 2 Transfer of Care Handoff Completed per policy Notes Mental Status: alert / awake / arousable Patient Amnestic to Procedure: Yes Nausea / Vomiting: adequately controlled Pain: adequately controlled Airway Patency, RR, SpO2: stable & adequate BP & HR: stable & adequate Hydration State: stable & adequate Neuraxial Anesthesia: was administered and sensory block is resolving Anesthetic Complications: no major complications apparent
[2022-11-25] MEDS: DOCUSATE SODIUM 100 MG CAP PO SCH (20:32)
--- NOTE | 2022-11-26 02:48 | Operative Report (OR) ---
DATE OF SURGERY: 11/25/2022. PREOPERATIVE DIAGNOSIS: Term breech presentation in . POSTOPERATIVE DIAGNOSIS: Term breech presentation in . PROCEDURE: Primary section, low segment transverse. SURGEON: Duane Gutiérrez MD SEGREGATOR: Sharon Soliz MD ESTIMATED BLOOD LOSS: 500 mL. FINDINGS: Live female, maranda breech presentation, Apgars 8 and 9, weight 8 pounds 7.8 ounces. TOTAL FLUIDS: 3000 mL of lactated Ringer's. URINE OUTPUT: 150 mL. SPECIMEN: Placenta. DRAINS: Coleman. ANESTHESIA: Spinal. COMPLICATIONS: None. CLINICAL HISTORY: The patient is a 32-year-old female, para 2-0-0-2, at term, presents with breech p resentation at term. Ultrasound done at the bedside this morning by myself was done prior to the sta rt of the procedure, confirming breech presentation. The patient was given informed consent and cons ents were signed. Antibiotics were given preop and a timeout was called prior to the start of the pr ocedure. DESCRIPTION OF PROCEDURE: Under satisfactory spinal anesthesia, the patient was tested for adequacy of anesthesia. After the patient was prepped and draped and a timeout, a low Pfannenstiel incision t hrough the abdomen was done entering into the abdominal cavity in successive layers without difficult y. Upon entering into the peritoneal cavity, the vertex was noted in the patient's upper left fundus . A bladder flap was then developed with sharp dissection using Metzenbaum scissors. This was then sharply dissected down. The bladder blade was entered. A low segment transverse incision was made. The incision was widened in the AP diameter and then nicked with an Allis clamp and found to be willa r. The baby was delivered from the maranda breech presentation without difficulty. The baby was sucti oned. There was delayed cord clamping. After the baby was stable, the cord was clamped and cut, bab y handed to bleach mixer. Cord blood was obtained. Placenta delivered spontaneously and intact. Uterus was then exteriorized. Ring forceps were then placed on both angles in the inferior margin. Uterus was closed in double-layered closure with 0 Vicryl suture in a continuous interlocking fashion . Tubes, ovaries bilaterally were found to be within normal limits. After the initial count was cor rect, the uterus was placed back into the normal anatomical position. The lower uterine segment was inspected. No active bleeding was noted. The fascia was then reapproximated from both ends using 0 Vicryl suture in a continuous fashion. Subcuticular space was then irrigated and closed with 3-0 trice in suture, interrupted, followed by 4-0 Monocryl subcuticular for the skin. Steri-Strips were applie d. The estimated blood loss at the end of procedure was 500 mL. Final sponge, needle and instrument count were found to be correct. The patient was then placed supine on a stretcher and taken to [facility] in stable condition. Please note the attestation, Dr. Soliz was needed to provide retraction, assistance at delivery of th e baby and to help with closure of the uterus and abdomen. Job ID: [id number]
[2022-11-26] MEDS: IBUPROFEN 600 MG TAB PO PRN ×4 (03:15→19:57)
[2022-11-26 06:50] LABS: Basophils # (auto) 0.02 K/uL (0-0.2); Basophils % (auto) 0.2 %; Eosinophils # (auto) 0.03 K/uL (0-0.50); Eosinophils % (auto) 0.3 %; Hematocrit (blood only) 31.6 % (37.0-47.0); Hemoglobin 10.5 g/dl (12.0-16.0); Immature Granulocytes # (auto) 0.04 K/uL (0.01-0.20); Immature Granulocytes % (auto) 0.4 %; Lymphocytes # (auto) 1.43 K/uL (1.2-3.4); Lymphocytes % (auto) 12.9 %; Mean Corpuscular Hgb Conc 33.2 g/dL (32.0-36.0); Mean Corpuscular Volume 87.3 fL (80.0-100.0); Mean Platelet Volume 10.8 fL (9.4-12.4); Monocytes # (auto) 1.08 K/uL (0.11-0.59); Monocytes % (auto) 9.7 %; Neutrophils % (auto) 76.5 %; Platelet Count 204 K/uL (130-400); RDW Coefficient of Variation 13.9 % (11.5-14.5); RDW Standard Deviation 44.1 fL (36.4-46.3); Red Blood Count 3.62 M/uL (4.20-5.40)
[2022-11-26] MEDS: PRENATAL VITAMIN 1 TAB PO SCH (07:53)
[2022-11-26] MEDS: SIMETHICONE 80 MG CHEW PO SCH ×4 (07:53→19:57)
[2022-11-26] MEDS: DOCUSATE SODIUM 100 MG CAP PO SCH ×2 (07:54→19:57)
[2022-11-26] MEDS: FERROUS SULFATE 325 MG TAB PO SCH (07:54)
[2022-11-26] MEDS ORDERED: NON-FORMULARY MEDICATION (Prenatal Vit-Iron Fum-Folic Ac [Prenatal Vitamin] 27 mg iron- 0. PO SCH (09:00)
--- NOTE | 2022-11-26 10:17 | Obstetrical Progress Note ---
Date of Service November 26, 2022 Subjective Ambulation: limited ambulation Voiding: no voiding problems Diet Tolerance:: regular diet Lochia:: Small Feeding Type:: breast feeding Current Pain Level(1-10): 0 Physical Exam Constitutional WD/WN, vitals as above Gastrointestinal (Abdomen) Inspection/Auscultation: abdomen normal to inspection incision c/d/i Musculoskeletal Extremities: extremities normal to inspection Skin no rashes, warm and dry Neurologic patellar DTR's 2+ bilat, sensation intact Psychiatric A+Ox3, euthymic affect Results & Data Vital Signs (Past 12 Hours) Vital Signs Temp Pulse Resp BP Pulse Ox O2 Del Method 11/26/22 08:00 36.9 C 63 16 100/62 95 Room Air 11/26/22 03:30 37.3 C 67 18 103/66 96 Room Air 11/26/22 02:00 16 98 11/26/22 01:01 18 97 11/26/22 00:20 Room Air 11/26/22 00:20 37.2 C 73 18 111/70 97 Room Air 11/26/22 00:00 18 97 11/25/22 23:15 18 98 Laboratory Results 11/25/22 11/25/22 11/25/22 05:35 05:51 05:55 WBC 7.88 RBC 4.10 L Hgb 11.9 L Hct 35.5 L MCV 86.6 MCH 29.0 MCHC 33.5 RDW Std Deviation 42.8 RDW Coeff of Tracy 13.7 Plt Count 216 MPV 10.8 Immature Gran % (Auto) 0.5 Neut % (Auto) 55.7 Lymph % (Auto) 32.9 [place] % (Auto) 9.1 Eos % (Auto) 1.4 Baso % (Auto) 0.4 Neut # (Auto) 4.39 Lymph # (Auto) 2.59 [place] # (Auto) 0.72 H Eos # (Auto) 0.11 Baso # (Auto) 0.03 Immature Gran # (Auto) 0.04 SARS-CoV-2, RNA, NAAT NEGATIVE Blood Type A Positive Antibody Screen NEGATIVE 11/26/22 06:34 WBC 11.10 H RBC 3.62 L Hgb 10.5 L Hct 31.6 L MCV 87.3 MCH 29.0 MCHC 33.2 RDW Std Deviation 44.1 RDW Coeff of Tracy 13.9 Plt Count 204 MPV 10.8 Immature Gran % (Auto) 0.4 Neut % (Auto) 76.5 Lymph % (Auto) 12.9 [place] % (Auto) 9.7 Eos % (Auto) 0.3 Baso % (Auto) 0.2 Neut # (Auto) 8.50 H Lymph # (Auto) 1.43 [place] # (Auto) 1.08 H Eos # (Auto) 0.03 Baso # (Auto) 0.02 Immature Gran # (Auto) 0.04 SARS-CoV-2, RNA, NAAT Blood Type Antibody Screen
[2022-11-26] MEDS ORDERED: bisacodyL 5 MG TABEC PO SCH (20:00)
[2022-11-27] MEDS: IBUPROFEN 600 MG TAB PO PRN ×2 (00:07→06:10)
[2022-11-27 06:45] LABS: Hematocrit (blood only) 31.4 % (37.0-47.0); Hemoglobin 10.6 g/dl (12.0-16.0)
--- NOTE | 2022-11-27 08:15 | Obstetrical Progress Note ---
Date of Service November 27, 2022 Assessment & Plan (1) Normal course: d/c home today with instructions f/u in clinic for incision check Subjective Ambulation: ambulating normally Voiding: no voiding problems Passing Gas:: Yes Diet Tolerance:: regular diet Lochia:: Small Feeding Type:: breast feeding Current Pain Level(1-10): 1 Doing well, bonding with baby, wants to go home today Physical Exam Constitutional WD/WN, vitals as above Respiratory normal respiratory effort, lungs clear to auscultation Cardiovascular RRR, no murmur, no edema Gastrointestinal (Abdomen) normal bowel sounds, soft, nontender, no hepatosplenomegaly incision clean, dry intact with steristrips Results & Data Vital Signs (Past 12 Hours) Vital Signs Temp Pulse Resp BP 11/26/22 23:15 37.1 C 77 18 114/76 Diagnostic Findings Laboratory Results WBC 11.10 K/ul (4.8-10.8) H 11/26/22 06:34 RBC 3.62 M/uL (4.20-5.40) L 11/26/22 06:34 Hgb 10.6 g/dl (12.0-16.0) L 11/27/22 06:12 Hct 31.4 % (37.0-47.0) L 11/27/22 06:12 MCV 87.3 fL (80.0-100.0) 11/26/22 06:34 MCH 29.0 pg (25.0-34.0) 11/26/22 06:34 MCHC 33.2 g/dL (32.0-36.0) 11/26/22 06:34 RDW Std Deviation 44.1 fL (36.4-46.3) 11/26/22 06:34 RDW Coeff of Tracy 13.9 % (11.5-14.5) 11/26/22 06:34 Plt Count 204 K/uL (130-400) 11/26/22 06:34 MPV 10.8 fL (9.4-12.4) 11/26/22 06:34 Immature Gran % (Auto) 0.4 % 11/26/22 06:34 Neut % (Auto) 76.5 % 11/26/22 06:34 Lymph % (Auto) 12.9 % 11/26/22 06:34 Reynolds % (Auto) 9.7 % 11/26/22 06:34 Eos % (Auto) 0.3 % 11/26/22 06:34 Baso % (Auto) 0.2 % 11/26/22 06:34 Neut # (Auto) 8.50 K/uL (1.40-6.50) H 11/26/22 06:34 Lymph # (Auto) 1.43 K/uL (1.2-3.4) 11/26/22 06:34 Reynolds # (Auto) 1.08 K/uL (0.11-0.59) H 11/26/22 06:34 Eos # (Auto) 0.03 K/uL (0-0.50) 11/26/22 06:34 Baso # (Auto) 0.02 K/uL (0-0.2) 11/26/22 06:34 Immature Gran # (Auto) 0.04 K/uL (0.01-0.20) 11/26/22 06:34 SARS-CoV-2, RNA, NAAT NEGATIVE (NEGATIVE) 11/25/22 05:35 Blood Type A Positive 11/25/22 05:51 Antibody Screen NEGATIVE 11/25/22 05:51
[2022-11-27] MEDS: DOCUSATE SODIUM 100 MG CAP PO SCH (08:19)
[2022-11-27] MEDS: FERROUS SULFATE 325 MG TAB PO SCH (08:19)
[2022-11-27] MEDS: SIMETHICONE 80 MG CHEW PO SCH (08:19)
[2022-11-27] MEDS: PRENATAL VITAMIN 1 TAB PO SCH (08:19)
[2022-11-27] MEDS ORDERED: bisacodyL 10 MG SUPP PR PRN (09:24)
--- NOTE | 2022-11-28 07:13 | Coding Query ---
CODING QUERY To promote full compliance with coding requirements relating to patient care, provider participation is requested in all cases of clinical project coordinator uncertainty. Please assist us with the question(s) below: Coding Question(s): Term breech presentation in is doucmented. Please specify below the number of weeks of gestation on admission: ( x) Specified number weeks of gestation. Please specify 39 ( ) Unknown number weeks of gestation Physician's Response(s): 39 Thank you Jacquelin Richardson Principal Diagnosis: "that condition established after study, to be chiefly responsible for occasioning the admission of the patient to the hospital for care." Co-Existing Principal Diagnosis: "when two or more diagnoses equally meet the criteria for principal diagnosis as determined by the circumstances of admission, diagnostic work up, and/or therapy provided, and the Alphabetic Index, Tabular List, or another coding guideline does not provide sequencing direction, any one of the diagnoses may be sequenced first." "When the physician has documented what appears to be a current diagnosis in the body of the record, but has not included the diagnosis in the final diagnostic statement, the physician should be asked whether the diagnosis should be added." (Source Coding [facility] 2 QTR90. p3-4) EREN
== END 2022-11-27 13:00 | disposition home or self-care (01) | DRG 788 ==
LOC: 4S1 05:27 → EDSTATUS 07:30 → 4E2 11:45